=== PATIENT | male | born 1950 | race Caucasian/White ===

== ENCOUNTER 2019-10-09 13:21 | Emergency (ER) | payer BC ==
--- NOTE | 2019-10-09 15:14 | EDM.PDOC ---
<Dania York - Last Filed: 10/09/19 15:08> ED HPI GENERAL MEDICAL PROBLEM - General Chief Complaint: Cardiovascular Problem Stated Complaint: SWOLLEN LEGS Time Seen by Provider: 10/09/19 14:21 Source of Information: Reports: Patient History Limitations: Reports: No Limitations - History of Present Illness Onset: Gradual Location: Reports: Lower Extremity, Left Quality: Reports: Burning Severity: Moderate Improves with: Reports: None Worsens with: Reports: None Associated Symptoms: Reports: Shortness of Breath (with activity ). Denies: Chest Pain, Fever/Chills, Nausea/Vomiting, Rash - Related Data Allergies Allergy/AdvReac Type Severity Reaction Status Date / Time No Known Allergies Allergy Verified 10/09/19 13:52 Home Meds: Home Meds Aspirin [Halfprin] 81 mg PO DAILY 10/09/19 [History] Carvedilol [Coreg] 25 mg PO BID 10/09/19 [History] Digoxin [Lanoxin] 125 mg PO DAILY 10/09/19 [History] Diltiazem HCl [Tiazac] 180 mg PO BID 10/09/19 [History] Furosemide [Lasix] 40 mg PO DAILY 10/09/19 [History] Gemfibrozil 600 mg PO BID 10/09/19 [History] Glimepiride [Amaryl] 2 mg PO DAILY 10/09/19 [History] Levothyroxine 150 mg PO DAILY 10/09/19 [History] Lisinopril [Zestril] 10 mg PO DAILY 10/09/19 [History] Omeprazole 20 mg PO DAILY 10/09/19 [History] Oxybutynin 5 mg PO BID 10/09/19 [History] metFORMIN [Glucophage] 1,000 mg PO BID 10/09/19 [History] Past Medical History Cardiovascular History: Reports: Afib, High Cholesterol, Hypertension Endocrine/Metabolic History: Reports: Diabetes, Type II, Hypothyroidism - Past Surgical History Endocrine Surgical History: Reports: Thyroidectomy Social & Family History - Tobacco Use Smoking Status *Q: Never Smoker - Caffeine Use Caffeine Use: Reports: Tea - Recreational Drug Use Recreational Drug Use: No - Living Situation & Occupation Occupation: Employed (drives truck) ED ROS GENERAL - Review of Systems Review Of Systems: See Below Constitutional: Reports: No Symptoms (does not measure weight at home) HEENT: Reports: No Symptoms Respiratory: Reports: Shortness of Breath (SOB with activity) Cardiovascular: Reports: Dyspnea on Exertion, Edema (bilateral lower extremity edema, worsening on left leg just below the knee ) Endocrine: Reports: No Symptoms GI/Abdominal: Reports: No Symptoms : Reports: No Symptoms Musculoskeletal: Reports: Leg Pain (left calf burning ). Denies: Foot Pain, Joint Pain Skin: Reports: Dryness (bilaterally on distal lower extremities), Rash (venous stasis dermatitis present bilaterally ), Lesions (open skin on right anterior lower leg due to prior injury (bumped it)). Denies: Bruising, Erythema Neurological: Reports: No Symptoms Psychiatric: Reports: No Symptoms Hematologic/Lymphatic: Reports: No Symptoms ED EXAM, GENERAL - Physical Exam Exam: See Below Exam Limited By: No Limitations General Appearance: Alert, No Apparent Distress, Obese Respiratory/Chest: No Respiratory Distress, No Accessory Muscle Use, Rales (in bases bilaterally ) Cardiovascular: Regular Rate, Rhythm, Other (lower extremity edema bilaterally ( 3+ pitting)) Peripheral Pulses: 1+: Posterior Tibial (L), Posterior Tibial (R), Dorsalis Pedis (L), Dorsalis Pedis (R) Extremities: Normal Range of Motion, Non-Tender (left lower leg not tender to the touch but does feel a deep burning pain), Normal Capillary Refill. No: Joint Swelling, Increased Warmth, Redness Neurological: Alert, Oriented, Normal Cognition, No Motor/Sensory Deficits Psychiatric: Normal Affect, Normal Mood Skin Exam: Warm, Dry, Normal Color, Other (venous stasis dermatitis with open lesion on anterior right leg, healing lesion on anterior left leg) Course - Vital Signs Last Recorded V/S: Last Vital Signs Temp 97.9 F 10/09/19 13:55 Pulse 109 H 10/09/19 13:55 Resp 20 10/09/19 13:55 BP 134/83 10/09/19 13:55 Pulse Ox 90 L 10/09/19 13:55 - Orders/Labs/Meds Orders: Active Orders 24 hr Category Date Time Status Cardiac Monitoring [RC] . DIRECTED Care 10/09/19 15:07 Active EKG Documentation Completion [RC] STAT Care 10/09/19 15:08 Active Chest 2V [CR] Stat Exams 10/09/19 15:08 Taken Labs: Laboratory Tests 10/09/19 10/09/1920 Range/Units 15:30 15:30 15:30 WBC 6.69 (4.23-9.07) K/mm3 RBC 4.15 L (4.63-6.08) M/mm3 Hgb 12.5 L (13.7-17.5) gm/dl Hct 38.2 L (40.1-51.0) % MCV 92.0 (79.0-92.2) fl MCH 30.1 (25.7-32.2) pg MCHC 32.7 (32.2-35.5) g/dl RDW Std Deviation 50.9 H (35.1-43.9) fL Plt Count 132 L (163-337) K/mm3 MPV 11.2 (9.4-12.3) fl Neut % (Auto) 79.1 H (34.0-67.9) % Lymph % (Auto) 10.9 L (21.8-53.1) % Mason % (Auto) 7.9 (5.3-12.2) % Eos % (Auto) 1.9 (0.8-7.0) Baso % (Auto) 0.1 (0.1-1.2) % Neut # (Auto) 5.28 (1.78-5.38) K/mm3 Lymph # (Auto) 0.73 L (1.32-3.57) K/mm3 Mason # (Auto) 0.53 (0.30-0.82) K/mm3 Eos # (Auto) 0.13 (0.04-0.54) K/mm3 Baso # (Auto) 0.01 (0.01-0.08) K/mm3 D-Dimer, Quantitative 0.83 H (0.19-0.50) mg/L Sodium 145 (136-145) mEq/L Potassium 4.0 (3.5-5.1) mEq/L Chloride 107 (98-107) mEq/L Carbon Dioxide 33 H (21-32) mEq/L Anion Gap 9.0 (5-15) BUN 18 (7-18) mg/dL Creatinine 0.8 (0.7-1.3) mg/dL Est Cr Clr Drug Dosing 104.18 mL/min Estimated GFR (MDRD) > 60 (>60) mL/min BUN/Creatinine Ratio 22.5 H (14-18) Glucose 96 (80-115) mg/dL Calcium 8.9 (8.5-10.1) mg/dL Total Bilirubin 1.1 H (0.2-1.0) mg/dL AST 34 (15-37) U/L ALT 70 H (16-63) U/L Alkaline Phosphatase 104 (46-116) U/L Troponin I < 0.017 (0.00-0.056) ng/mL NT-Pro-B Natriuret Pep (0-125) pg/mL Total Protein 6.6 (6.4-8.2) g/dl Albumin 3.5 (3.4-5.0) g/dl Globulin 3.1 gm/dL Albumin/Globulin Ratio 1.1 (1-2) 10/09/19 Range/Units 15:30 WBC (4.23-9.07) K/mm3 RBC (4.63-6.08) M/mm3 Hgb (13.7-17.5) gm/dl Hct (40.1-51.0) % MCV (79.0-92.2) fl MCH (25.7-32.2) pg MCHC (32.2-35.5) g/dl RDW Std Deviation (35.1-43.9) fL Plt Count (163-337) K/mm3 MPV (9.4-12.3) fl Neut % (Auto) (34.0-67.9) % Lymph % (Auto) (21.8-53.1) % Mason % (Auto) (5.3-12.2) % Eos % (Auto) (0.8-7.0) Baso % (Auto) (0.1-1.2) % Neut # (Auto) (1.78-5.38) K/mm3 Lymph # (Auto) (1.32-3.57) K/mm3 Mason # (Auto) (0.30-0.82) K/mm3 Eos # (Auto) (0.04-0.54) K/mm3 Baso # (Auto) (0.01-0.08) K/mm3 D-Dimer, Quantitative (0.19-0.50) mg/L Sodium (136-145) mEq/L Potassium (3.5-5.1) mEq/L Chloride (98-107) mEq/L Carbon Dioxide (21-32) mEq/L Anion Gap (5-15) BUN (7-18) mg/dL Creatinine (0.7-1.3) mg/dL Est Cr Clr Drug Dosing mL/min Estimated GFR (MDRD) (>60) mL/min BUN/Creatinine Ratio (14-18) Glucose (80-115) mg/dL Calcium (8.5-10.1) mg/dL Total Bilirubin (0.2-1.0) mg/dL AST (15-37) U/L ALT (16-63) U/L Alkaline Phosphatase (46-116) U/L Troponin I (0.00-0.056) ng/mL NT-Pro-B Natriuret Pep 1168 H (0-125) pg/mL Total Protein (6.4-8.2) g/dl Albumin (3.4-5.0) g/dl Globulin gm/dL Albumin/Globulin Ratio (1-2) Departure - Departure Disposition: Home, Self-Care 01 Clinical Impression: Leg edema CHF (congestive heart failure) Qualifiers: Heart failure type: unspecified Heart failure chronicity: chronic Qualified Code(s): I50.9 - Heart failure, unspecified Referrals: PCP,Not In Area [Primary Care Provider] - Forms: ED Department Discharge Additional Instructions: Take 2 of your lasix pills or 80mg daily. Please return if you are worse. Sepsis Event Note - Evaluation Sepsis Screening Result: No Definite Risk - Focused Exam Vital Signs: Vital Signs Temp Pulse Resp BP Pulse Ox 10/09/19 13:55 97.9 F 109 H 20 134/83 90 L Date Exam was Performed: 10/09/19 Time Exam was Performed: 15:08 - My Orders Last 24 Hours: My Active Orders 10/09/19 15:07 Cardiac Monitoring [RC] . DIRECTED 10/09/19 15:08 EKG Documentation Completion [RC] STAT Chest 2V [CR] Stat - Assessment/Plan Last 24 Hours: My Active Orders 10/09/19 15:07 Cardiac Monitoring [RC] . DIRECTED 10/09/19 15:08 EKG Documentation Completion [RC] STAT Chest 2V [CR] Stat <Altaf Gagnon - Last Filed: 10/09/19 17:01> ED HPI GENERAL MEDICAL PROBLEM - History of Present Illness INITIAL COMMENTS - FREE TEXT/NARRATIVE: The patient presents with bilateral leg swelling. This has been going on for a few days. He has a little shortness or breath and some chest pressure. The chest pressure has been there longer for about 2 weeks. He has no fever, chills , cough, abdominal pain, nausea or vomiting. He has more swelling in the left leg then the right leg. EKG INTERPRETATION EKG Date: 10/09/19 Time: 15:20 Rhythm: A-Fib Rate (Beats/Min): 106 [place]: Normal QRS: Normal ST-T: Normal QT: Normal Course - Re-Assessments/Exams Free Text/Narrative Re-Assessment/Exam: 10/09/19 16:40 I ordered an EKG, CXR, and labs. His EKG shows A-fib with no acute changes. His CXR showed cardiomegaly with some congestive changes. His CBC looks good. His ALT was elevated at 70. His troponin is negative. His BNP is elevated at 1168. His D-dimer was slightly elevated at 0.83. Adjusted for his age, I am not concerned about the D-dimer. THis US shows subcutaneous edema within the lower extremity on the left side. No deep venous thrombosis is seen within the left lower extremity or within the right common femoral vein. 10/09/19 17:00 I will have him double his lasix for 3 days. Departure - Departure Time of Disposition: 17:05 Condition: Good Sepsis Event Note - Focused Exam Date Exam was Performed: 10/09/19 Time Exam was Performed: 17:00
--- NOTE | 2019-10-09 16:23 | US ---
Left lower extremity deep venous ultrasound: Duplex and color Doppler evaluation of the left common femoral, proximal greater saphenous, superficial femoral, popliteal, posterior tibial and peroneal veins were obtained. Right common femoral vein was also evaluated. Comparison: No prior venous imaging. Findings: Subcutaneous edema is seen within the lower extremity on the left side. Normal phasic flow, augmentation and compression is seen. Peroneal vein is not optimally is seen but no indirect findings of thrombosis is appreciated. Impression: 1. Subcutaneous edema within the lower extremity on the left side. 2. No deep venous thrombosis is seen within the left lower extremity or within the right common femoral vein. Diagnostic code #2 This report was dictated in [place] Standard Time
--- NOTE | 2019-10-09 17:32 | CR ---
Chest: 2 views of the chest were obtained. Comparison: No prior chest imaging. Heart size and mediastinum are normal. Small rudimentary right upper rib is noted. Bony structures appear within normal limits for the patient's age. Blunting of the lateral left costophrenic angle is seen and difficult to exclude small pleural effusion or chronic pleural thickening. Lungs otherwise are clear. Impression: 1. Blunting of the lateral left costophrenic angle as noted above. 2. Nothing acute is otherwise appreciated. Diagnostic code #2 This report was dictated in [place] Standard Time
== END 2019-10-09 17:27 | disposition home or self-care (01) ==
LOC: JD.ED 13:21
DX: I11.0 Hypertensive heart disease with heart failure (principal); I50.9 Heart failure, unspecified; I48.91 Unspecified atrial fibrillation; E11.9 Type 2 diabetes mellitus without complications; E03.9 Hypothyroidism, unspecified; Z79.84 Long term (current) use of oral hypoglycemic drugs; Z79.82 Long term (current) use of aspirin; Z79.899 Other long term (current) drug therapy
CPT/HCPCS: 36415; 71046; 71046-26; 80053; 83880; 84484; 85025; 85379; 93005; 93010; 93971-26-LT; 93971-LT; 99284; 99285-25